=== PATIENT | female | born 1970 | race Caucasian/White ===

== ENCOUNTER 2018-11-15 16:52 | Emergency (ER) | payer MEDICAID, OTHER ==
[2018-11-15 17:01] VITALS: BP 113/77
[2018-11-15] MEDS ORDERED: IBUPROFEN 800 MG TAB PO ONE (17:16)
--- NOTE | 2018-11-15 17:19 | EDPHY ---
H & P Stated Complaint: Skiing accident - Personal History LMP (Females 10-55): Post Menopausal Current Tetanus/Diphtheria Vaccine: Yes - Medical/Surgical History Hx Asthma: No Hx Chronic Respiratory Disease: No Hx Diabetes: No Hx Cardiac Disease: No Hx Renal Disease: No Hx Cirrhosis: No Hx Alcoholism: No Other PMH: OHS, MV repair - Social History Smoking Status: Never smoked Time Seen by Provider: 11/15/18 17:03 HPI/ROS: CHIEF COMPLAINT: Left wrist left knee pain post skier versus tree HISTORY OF PRESENT ILLNESS: 48-year-old female prior history of right knee surgery by Dr. Damien Haywood, complaining of acute left wrist and left knee surgery when she was skiing today, hit a tree with her left knee. She was able [place] continue [place] She is not impact her head face chest or abdomen. She is complaining of reproducible pain to wrist and knee with range of motion, unable to bear weight to left knee secondary to pain. No straddle injury. REVIEW OF SYSTEMS: 10 systems reviewed and negative with the exception of the elements mentioned in the history of present illness PAST MEDICAL/SURGICAL HISTORY: Right ACL surgery by Dr. Damien Haywood 2016. no anticoagulant use, SOCIAL HISTORY: denies alcohol use at time of incident PHYSICAL EXAM 1) GENERAL: Well-developed, well-nourished, alert and oriented. Appears to be in no acute distress. Answering questions appropriately. 2) HEAD: Normocephalic, atraumatic 3) HEENT: Pupils equal, round, reactive to light bilaterally. Negative Horners. Nasopharynx, oropharynx, clear. No deformity or angulation of nose. No septal hematoma. No rhinorrhea. No oral trauma. Ears bilaterally with normal tympanic membranes. No hemotympanum. No fluid or blood in the external auditory canal. No raccoon eyes. No Pate sign. Teeth are normally aligned with no gross malocclusion, TMJ bilaterally nontender, facial bones nontender including the zygomatic arch, maxilla mandible. 4) NECK: No cervical collar is on. Posterior cervical spine is nontender, no stepoff, no effusion. Full range of motion which does not elicit any midline cervical spine pain, no posterior midline tenderness, no step-off. 5) LUNGS: Clear to auscultation bilaterally, no wheezes, no rhonchi, no retractions. No obvious signs of trauma. No chest wall pain. No flaring, no grunting. Moving symmetrically. No crepitus. 6) HEART: [Regular rate and rhythm, 7) ABDOMEN: No guarding, no rebound, no focal tenderness, no peritoneal signs, no signs of trauma, no ecchymosis 8) MUSCULOSKELETAL: Left upper extremity: Tender to palpation distal radius with no deformity no angulation. Radial ulnar median nerve function intact. Hand fingers proximal forearm humerus elbow shoulder nontender. Soft compartments throughout. Brisk pulses and capillary refill. Left lower extremity: Soft tissue swelling and tenderness to the anterior knee with intact skin, no ecchymosis. Keeping knee near full extension unable or unwilling to flex secondary to pain. Proximally distally nontender. Soft compartments. DP PT pulses present and brisk distally. Full sensation distally. Otherwise, Moving all extremities, no focal areas of tenderness, no obvious trauma. 9) BACK: No midline vertebral tenderness, no fluctuance, no step-off, no obvious trauma, no visual or palpable abnormality. 10) SKIN: No laceration. No abrasion DIFFERENTIAL DIAGNOSIS: In no particular order including but not limited to fracture, sprain, strain, dislocation (Toan Palacios Jerilyn) Constitutional: Initial Vital Signs Temperature (C) 36.4 C 11/15/18 16:58 Heart Rate 72 11/15/18 16:58 Respiratory Rate 18 11/15/18 16:58 Blood Pressure 113/77 11/15/18 16:58 O2 Sat (%) 96 11/15/18 16:58 O2 Delivery Mode Room Air Allergies/Adverse Reactions: No Known Allergies Allergy (Unverified 11/15/18 17:01) Home Medications: Medication Instructions Recorded NK [No Known Home Meds] 11/15/18 Medical Decision Making - Diagnostics Imaging Results: Imaging Impressions Knee X-Ray 11/15/18 17:11 Impression: Negative for fracture. Wrist X-Ray 11/15/18 17:11 Impression: Negative for fracture. Images reviewed myself (Toan Palacios) Procedures: Procedure: Crutches indications for crutch use discussed with patient. Patient fitted for crutches by ER staff. Observed ambulating with crutches. I think the patient has the capacity to safely use crutches. Usual and customary crutch walking precautions provided Procedure: Splint 1. A knee immobilizer splint was applied by ER sterile preparation technician. After application of the splint I returned and re-examined the patient. The splint was adequately immobilizing the joint and distal to the splint the patient's circulation and sensation were intact. Patient shows no signs of compartment syndrome. Was given orthopedic precautions. Procedure: Splint 2. Patient has her own pre-hospital wrist splint which was appropriately sized by ER staff and checked by ER staff. The splint was adequately immobilizing the joint and distal to the splint the patient's circulation and sensation were intact. Patient shows no signs of compartment syndrome. Was given orthopedic precautions. (Toan Palacios) ED Course/Re-evaluation: Re-evaluation with serial exams. Discussed the limitations of x-ray with the patient, notably she has been informed that non osseous injury is not ruled out. She has previously seen Dr. Damien Haywood, she may follow up with him. Soft compartments no evidence compartment syndrome. Care of patient under supervision of primary supervising physician Dr Luis. (Toan Palacios) Other Provider: PHYSICIAN DOCUMENTATION: The patient was evaluated and managed by the Physician Pierogi Maker. My co- signature indicates that I have reviewed this chart and I agree with the findings and plan of care as documented. I am the secondary supervising physician. (Jose Luis) - Data Points Medications Given: Discontinued Medications Acetaminophen (Tylenol) 1,000 mg PO EDNOW ONE Stop: 11/15/18 17:31 Last Admin: 11/15/18 17:33 Dose: 1,000 mg Ibuprofen (Motrin) 800 mg PO EDNOW ONE Stop: 11/15/18 17:17 Last Admin: 11/15/18 17:29 Dose: Not Given Departure - Departure Disposition: Home, Routine, Self-Care Clinical Impression: Left medial knee pain Skiing accident Qualifiers: Encounter type: initial encounter Qualified Code(s): V00.328A - Other snow-ski accident, initial encounter Wrist sprain Qualifiers: Encounter type: initial encounter Laterality: left Qualified Code(s): S63.502A - Unspecified sprain of left wrist, initial encounter Condition: Good Instructions: Knee Sprain (ED), Wrist Sprain (ED) Additional Instructions: Return to the ER immediately if you experience discoloration, have worsening pain, numbness, tingling, or any other symptoms that concern you. If you received x-rays in the emergency department today, be advised, that ligamentous , tendon, muscular, and other non-bony injury cannot be fully ruled out. Try to keep your affected extremity elevated above the level of your chest, and keep cold packs on the affected area, for the next 48 hours. Referrals: Damien Haywood MD [Medical Doctor] - As per Instructions
[2018-11-15] MEDS ORDERED: ACETAMINOPHEN 500 MG TAB ONE (17:28)
[2018-11-15] MEDS ORDERED: ACETAMINOPHEN 500 MG TAB PO ONE (17:30)
== END 2018-11-15 18:12 | disposition home or self-care (01) ==
DX: S63.502A Unspecified sprain of left wrist, initial encounter (principal); M25.562 Pain in left knee; V00.322A Snow-skier colliding with stationary object, initial encounter; Y93.23 Activity, snow (alpine) (downhill) skiing, snowboarding, sledding, tobogganing and snow tubing; Y92.838 Other recreation area as the place of occurrence of the external cause; Z98.890 Other specified postprocedural states
CPT/HCPCS: L1832